=== PATIENT | female | born 1970 | race Caucasian/White ===

== ENCOUNTER → 2017-06-26 | Outpatient (CLI) | payer OTHER | LOC: KOH-I 12:18 | DX: M25.561 Pain in right knee (principal); M25.562 Pain in left knee; M19.90 Unspecified osteoarthritis, unspecified site; M54.5 Low back pain; M46.1 Sacroiliitis, not elsewhere classified; K21.9 Gastro-esophageal reflux disease without esophagitis; K58.9 Irritable bowel syndrome, unspecified; M79.7 Fibromyalgia; M06.9 Rheumatoid arthritis, unspecified; Z72.0 Tobacco use; M25.50 Pain in unspecified joint; R52 Pain, unspecified; F32.9 Major depressive disorder, single episode, unspecified; M54.17 Radiculopathy, lumbosacral region; Z78.0 Asymptomatic menopausal state | CPT/HCPCS: 72110; 73564 ==

== ENCOUNTER → 2020-12-14 | Outpatient (CLI) | payer OTHER | LOC: KOH-I 12:54 | DX: I73.9 Peripheral vascular disease, unspecified (principal); L03.116 Cellulitis of left lower limb | CPT/HCPCS: 93926 ==

== ENCOUNTER → 2021-02-01 | Outpatient (CLI) | payer OTHER | LOC: KOH-I 10:30 | DX: M54.5 Low back pain (principal); M51.36 Other intervertebral disc degeneration, lumbar region; M51.34 Other intervertebral disc degeneration, thoracic region; K58.9 Irritable bowel syndrome, unspecified; E55.9 Vitamin D deficiency, unspecified; M79.7 Fibromyalgia; E53.8 Deficiency of other specified B group vitamins | CPT/HCPCS: 72070; 72110 ==

== ENCOUNTER → 2021-03-26 | Outpatient (CLI) | payer OTHER | LOC: KOH-I 03-19 15:15 | DX: M54.5 Low back pain (principal); M51.37 Other intervertebral disc degeneration, lumbosacral region | CPT/HCPCS: 72148 ==

== ENCOUNTER 2021-09-01 18:07 | Emergency (ER) | payer OTHER ==
[2021-09-01 19:57] LABS: HEMOGLOBIN 14.8 gm/dl (12.3-15.3); RED BLOOD COUNT 5.02 M/UL (4.00-5.10); WHITE BLOOD COUNT 13.9 K/UL (4.5-11.0)
[2021-09-01 20:15] LABS: BUN/CREATININE RATIO 21 (0-10)
[2021-09-01] MEDS ORDERED: DOXYCYCLINE HY100 M2 PO (22:30)
[2021-09-01] MEDS ORDERED: NAPROXEN500 MG PO (22:30)
== END 2021-09-01 23:00 | disposition home or self-care (01) ==
LOC: ER1 18:07
PROVIDERS: Physician Assistant Medical
DX: R22.0 Localized swelling, mass and lump, head (principal); R22.1 Localized swelling, mass and lump, neck
CPT/HCPCS: 70491; 80053; 85025; 99284; Q9967

== ENCOUNTER → 2021-11-06 | Outpatient (CLI) | payer OTHER ==
[~2021-11-06] MED LIST: DOXYCYCLINE HY100 M2 PO; NAPROXEN500 MG PO
== END ==
LOC: RAD 14:13
DX: R05.9 Cough, unspecified (principal); Z20.822 Contact with and (suspected) exposure to COVID-19
CPT/HCPCS: 71046

== ENCOUNTER → 2022-04-25 | Outpatient (CLI) | payer OTHER | LOC: HEART 5 16:18 | DX: Z72.0 Tobacco use (principal) | CPT/HCPCS: 94010; 94729 ==